=== PATIENT | female | born 1990 ===

== ENCOUNTER 2021-08-18 14:34 | Inpatient (IN) | payer BC ==
[2021-08-18] MEDS ORDERED: Tranexamic Acid 1,000 MG in Sodium Chloride 0.9% 100 ML IV PRN (17:35)
[2021-08-18] MEDS ORDERED: Lidocaine 1% 50 ML MDV INJECT PRN (17:35)
[2021-08-18] MEDS ORDERED: Methylergonovine 0.2 MG/1 ML Amp IM PRN (17:35)
[2021-08-18] MEDS ORDERED: Sodium Chloride 0.9% 20 ML SDV IV PRN (17:35)
[2021-08-18] MEDS ORDERED: Sodium Chloride 0.9% 2.5 ML Syringe FLUSH PRN (17:35)
[2021-08-18] MEDS ORDERED: Carboprost Tromethamine 250 MCG/1 ML Amp IM PRN (17:35)
[2021-08-18] MEDS ORDERED: Sodium Chloride 0.9% 10 ML Syringe FLUSH PRN (17:35)
[2021-08-18] MEDS ORDERED: Butorphanol 1 MG/ML SDV IVPUSH PRN (17:35)
[2021-08-18] MEDS ORDERED: Misoprostol 200 MCG Tab PO PRN (17:35)
[2021-08-18] MEDS ORDERED: Water For Irrigation,Sterile 1,000 ML Container IRR PRN (17:35)
[2021-08-18] MEDS ORDERED: Nalbuphine 10 MG/1 ML Vial IVPUSH PRN (17:35)
[2021-08-18] MEDS ORDERED: Oxytocin/0.9 % Sodium Chloride 30 UNIT/500 ML BAG IV SCH ×2 (17:45→20:45)
[2021-08-18] MEDS: Lactated Ringers 1,000 ML IV SCH ×2 (18:12→19:51)
[2021-08-18] MEDS ORDERED: Ropivacaine HCl/PF 200 ML ONE (18:21)
[2021-08-18] MEDS ORDERED: Lidocaine 2% 5 ML SDV ONE (18:33)
[2021-08-18] MEDS ORDERED: fentaNYL 100 MCG/2 ML SDV ONE (18:33)
--- NOTE | 2021-08-18 18:45 | PCM.PREANE ---
Preanesthetic Assessment - Anesthesia/Transfusion/Family Hx Anesthesia History: No Prior Anesthesia - Review of Systems General: No Symptoms Pulmonary: No Symptoms Cardiovascular: No Symptoms Gastrointestinal: No Symptoms Neurological: No Symptoms Other: Reports: None - Physical Assessment NPO Status Date: 08/18/21 NPO Status Time: 12:00 Height: 5 ft 3 in Weight: 190 lb ASA Class: 2 Mental Status: Alert & Oriented x3 Airway Class: Mallampati = 2 Dentition: Reports: Normal Dentition Thyro-Mental Finger Breadths: 3 Mouth Opening Finger Breadths: 3 ROM/Head Extension: Full Lungs: Clear to Auscultation, Normal Respiratory Effort Cardiovascular: Regular Rate, Regular Rhythm - Lab Values: Laboratory Last Values WBC 14.39 K/uL (4.0-11.0) H 08/18/21 17:20 RBC 4.26 M/uL (4.30-5.90) L 08/18/21 17:20 Hgb 11.7 g/dL (12.0-16.0) L 08/18/21 17:20 Hct 35.9 % (36.0-46.0) L 08/18/21 17:20 MCV 84.3 fL (80.0-98.0) 08/18/21 17:20 MCH 27.5 pg (27.0-32.0) 08/18/21 17:20 MCHC 32.6 g/dL (31.0-37.0) 08/18/21 17:20 RDW Std Deviation 42.3 fl (28.0-62.0) 08/18/21 17:20 RDW Coeff of Romy 14 % (11.0-15.0) 08/18/21 17:20 Plt Count 347 K/uL (150-400) 08/18/21 17:20 MPV 10.40 fL (7.40-12.00) 08/18/21 17:20 Nucleated RBC % 0.0 /100WBC 08/18/21 17:20 Nucleated RBCs # 0 K/uL 08/18/21 17:20 Blood Type O POSITIVE 08/18/21 17:20 Antibody Screen NEGATIVE 08/18/21 17:20 - Allergies Allergies/Adverse Reactions: Allergies Allergy/AdvReac Type Severity Reaction Status Date / Time amoxicillin Allergy Rash Verified 08/18/21 04:59 - Acknowledgements Anesthesia Type Planned: Epidural Pt an Appropriate Candidate for the Planned Anesthesia: Yes Alternatives and Risks of Anesthesia Discussed w Pt/Guardian: Yes Pt/Guardian Understands and Agrees with Anesthesia Plan: Yes PreAnesthesia Questionnaire - HOME MEDS Home Medications: Home Meds Levothyroxine Sodium [Levothyroxine] 125 mcg PO DAILY 08/18/21 [History] Vit #76/Iron,Carb/Fa [Pnv 29-1 Tablet] 1 each PO DAILY 08/18/21 [His tory] - CURRENT (IN HOUSE) MEDS Current Meds: Current Medications Butorphanol Tartrate (Butorphanol 1 Mg/Ml Sdv) 1 mg IVPUSH Q1H PRN PRN Reason: Pain (severe 7-10) Carboprost Tromethamine (Carboprost Tromethamine 250 Mcg/1 Ml Amp) 250 mcg IM ASDIRECTED PRN PRN Reason: Post Hemorrhage Oxytocin/Sodium Chloride (Oxytocin 30 Unit In Ns 0.9% 500 Ml Premix) 30 unit in 500 mls @ 500 mls/hr IV TITRATE JIL Tranexamic Acid 1,000 mg/ (Sodium Chloride) 110 mls @ 660 mls/hr IV ONETIME PRN PRN Reason: Bleeding Lactated Ringer's (Ringers, Lactated) 1,000 mls @ 150 mls/hr IV ASDIRECTED JIL Lidocaine HCl (Lidocaine 1% 50 Ml Mdv) 50 ml INJECT ONETIME PRN PRN Reason: Laceration repair Methylergonovine Maleate (Methylergonovine 0.2 Mg/1 Ml Amp) 0.2 mg IM ASDIRECTED PRN PRN Reason: Post Hemorrhage Misoprostol (Misoprostol 200 Mcg Tab) 200 mcg PO ONETIME PRN PRN Reason: Post Hemorrhage Nalbuphine HCl (Nalbuphine 10 Mg/1 Ml Vial) 10 mg IVPUSH Q1H PRN PRN Reason: Pain (severe 7-10) Sodium Chloride (Sodium Chloride 0.9% 10 Ml Syringe) 10 ml FLUSH ASDIRECTED PRN PRN Reason: Keep Vein Open Sodium Chloride (Sodium Chloride 0.9% 2.5 Ml Syringe) 2.5 ml FLUSH ASDIRECTED PRN PRN Reason: Keep Vein Open Sodium Chloride (Sodium Chloride 0.9% 20 Ml Sdv) 10 ml IV ASDIRECTED PRN PRN Reason: IV Use Sterile Water (Water For Irrigation,Sterile 1,000 Ml Container) 1,000 ml IRR ASDIRECTED PRN PRN Reason: delivery Discontinued Medications Fentanyl (Fentanyl 100 Mcg/2 Ml Sdv) Confirm Administered Dose 100 mcg .ROUTE .STK-MED ONE Stop: 08/18/21 18:34 Ropivacaine (Naropin 0.2%) Confirm Administered Dose 200 mls @ as directed .ROUTE .STK-MED ONE Stop: 08/18/21 18:22 Lidocaine (Lidocaine 2% 5 Ml Sdv) Confirm Administered Dose 5 ml .ROUTE .STK-MED ONE Stop: 08/18/21 18:34
--- NOTE | 2021-08-18 18:46 | PCM.POSTAN ---
POST ANESTHESIA ASSESSMENT - MENTAL STATUS Mental Status: Alert, Oriented - RESPIRATORY Respiratory Status: Respiratory Rate WNL, Airway Patent, O2 Saturation Stable - CARDIOVASCULAR CV Status: Pulse Rate WNL, Blood Pressure Stable - GASTROINTESTINAL GI Status: No Symptoms - POST OP HYDRATION Hydration Status: Adequate & Stable
[2021-08-18] MEDS ORDERED: ePHEDrine 50 MG/ML SDV IVPUSH PRN ×2 (18:48)
--- NOTE | 2021-08-18 18:48 | PCM.SN.2 ---
- Pre-Procedure Checklist Attending Provider Aware: Yes Chart Reviewed: Yes Consent Signed: Yes Labs Reviewed: Yes VS/FHR Reviewed: Yes Patient Identification Confirmation Method: Reports: Chart Visual, ID Band Visual, Verbal Patient Pt an Appropriate Candidate for the Planned Anesthesia: Yes Alternatives and Risks of Anesthesia Discussed w Pt/Guardian: Yes - Procedure Procedure Start Date: 08/18/21 Procedure Start Time: 18:[address]: Reports: Blood Pressure, Heart Rate, SPO2 Functional IV: Yes Safety Measures: Reports: Patient Identified, Procedure Verified, Site Verified, Procedure Time Out Patient Position: Reports: Sitting Prep: Reports: Alcohol x3, Betadine x3 Local Anesthetic: Reports: Intradermal Wheal w Lidocaine 1% Regional Placement Level: Reports: L2-3 Needle: Reports: 17 g Touhy Approach: Reports: Midline Technique: Reports: PAM Glass Syringe Parasthesia: Reports: None Fluid Obtained: Reports: None Test Dose Medication: Reports: Lidocaine 1.5% w Epinephrine 1:200,000 Test Dose Response: Reports: Negative Loading Dose Time: 18:35 Loading Dose Medication: 100mcg fentanyl and 5cc 2% lido Loading Dose Patient Position: RLD Continuous Infusion Start Time: 18:25 Continuous Infusion Medication: 0.2% Naropin Continuous Infusion Rate: 16 Continuous Infusion PCS Bolus Option: 4 Continuous Infusion Lockout Dose (cc/hr): 28 Patient Position Post Placement: Reports: Supline/KENN VS and FHR Monitored in Unit Post Placement: Yes Procedure End Date: 08/18/21 Procedure End Time: 19:15
[2021-08-18] MEDS ORDERED: Ropivacaine/PF 400 MG/200 ML PCA EPIDUR SCH (19:00)
[2021-08-18] MEDS ORDERED: Ondansetron 4 MG/2 ML SDV ONE (19:10)
[2021-08-18] MEDS ORDERED: Ondansetron 4 MG/2 ML SDV IVPUSH PRN (19:15)
[2021-08-18] MEDS ORDERED: Citric Acid/Sodium Citrate Solution 30 ML Cup ONE (20:00)
[2021-08-18] MEDS ORDERED: Citric Acid/Sodium Citrate Solution 30 ML Cup PO ONE (20:10)
[2021-08-19] MEDS: Lactated Ringers 1,000 ML IV SCH (02:36)
[2021-08-19] MEDS ORDERED: Bisacodyl 10 MG Supp RECTAL PRN (06:53)
[2021-08-19] MEDS ORDERED: Witch Hazel Medicated Pads 40/Jar TOP PRN (06:53)
[2021-08-19] MEDS ORDERED: Ibuprofen 400 MG Tab PO PRN (06:53)
[2021-08-19] MEDS ORDERED: Acetaminophen 500 MG Tab PO PRN (06:53)
[2021-08-19] MEDS ORDERED: Lanolin 100% Cream 7 GM Tube TOP PRN (06:53)
[2021-08-19] MEDS ORDERED: oxyCODONE 5 MG Tab PO PRN (06:53)
[2021-08-19] MEDS ORDERED: Benzocaine/Menthol 20%-0.5% Spray 78 GM Cannister TOP PRN (06:53)
--- NOTE | 2021-08-19 06:53 | PCM.OPNOTE ---
- General Post-Op/Procedure Note Date of Surgery/Procedure: 08/19/21 Operative Procedure(s): /2nd MLL repaired Findings: Viable male APGARs 8 and 9, weight pending. Spontaneous delivery intact placenta with 3V cord. Pre Op Diagnosis: 39/1 week IUP. Active labor Post-Op Diagnosis: Same Anesthesia Technique: Epidural Primary Surgeon: Rehana Cerda EBL in mLs: 300 Complications: none known Condition: Good Free Text/Narrative:: Dictation [id number]
--- NOTE | 2021-08-19 07:05 | PCM48HPAN ---
Post Anesthesia Note - EVALUATION WITHIN 48HRS OF ANESTHETIC Vital Signs in Normal Range: Yes Patient Participated in Evaluation: Yes Respiratory Function Stable: Yes Airway Patent: Yes Cardiovascular Function Stable: Yes Hydration Status Stable: Yes Pain Control Satisfactory: Yes Nausea and Vomiting Control Satisfactory: Yes Mental Status Recovered: Yes
--- NOTE | 2021-08-19 07:14 | OR ---
SURGEON: Rehana Cerda M.D. DATE OF PROCEDURE: 08/19/2021 PREOPERATIVE DIAGNOSES: 1. 39 and 1 week intrauterine . 2. Active labor. POSTOPERATIVE DIAGNOSES: 1. 39 and 1 week intrauterine . 2. Active labor. PROCEDURES: Spontaneous vaginal delivery, second-degree midline laceration repair. ANESTHESIA: Epidural. ESTIMATED BLOOD LOSS: 300 mL. COMPLICATIONS: None known. FINDINGS: Viable male, score 8 at one minute and 9 at five minutes. Weight is pending. Spontaneous delivery, intact placenta, 3-vessel cord. DISPOSITION: Infant to nursery, mom in LDRP. PROCEDURE IN DETAIL: Rowena is a 30-year-old, G1, P0, at 39 weeks' gestation, who presented on the evening of 08/18/2021 with regular contractions throughout the day. With observation, she changed her cervix from 3 cm to 4 cm, was admitted, routine labs drawn, IV hydration was initiated. She is COVID negative. Category 1 heart tones are noted. The patient was increasingly uncomfortable, underwent regional anesthesia from epidural, became more comfortable, and at that time, was found to be 5 to 6 cm. Progressing nicely. Shortly before 10 p.m., amniotomy was performed, clear fluid was returned. The patient at that time was found to be 7 cm. She continued to progress throughout the night, early childhood hours. She began pushing efforts shortly after 4 a.m., pushed readily for an hour approximately 50 minutes, began pushing again, and pushed readily to a +3 station. I was called for delivery. Upon my arrival, the patient was placed in modified dorsal lithotomy position, she was prepped and draped in usual aseptic manner. Continued with pushing efforts, was able to push to a +4 station, followed by delivery of the infant's head atraumatically spontaneously, followed by anterior shoulder, posterior shoulder, and remainder of the body. 's oropharynx and nares were bulb suctioned. Body cord was reduced manually. Infant was handed off to his mother with attending nursery staff at her side. There was some meconium-stained fluid noted at that point. It has not been seen prior to this during the labor process. Cord arterial, cord venous, cord blood sampling was obtained. Light pressure was applied while the placenta was delivered spontaneously intact. Vigorous fundal uterine massage was then applied while 30 units of Pitocin was delivered in 500 mL of IV fluid. Upon inspection of cervix, vaginal sidewalls, and perineum, there was found to be a second-degree midline vaginal laceration present. This was repaired using 3-0 Vicryl in usual fashion. Hemostasis appeared evident. Sponge, instrument, and needle count was correct. The patient remained in LDRP, to nursery. Hemostasis evident. Uterus was firm. MICHAEL / PERLITA /[id number]
[2021-08-19] MEDS: Ibuprofen 800 MG Tab PO PRN ×3 (07:54→21:21)
[2021-08-19] MEDS: Acetaminophen 500 MG Tab PO PRN ×3 (07:55→20:18)
[2021-08-19] MEDS ORDERED: Calcium Carbonate 500 MG Tab.Chew PO PRN (19:57)
[2021-08-19] MEDS ORDERED: Famotidine 20 MG Tab PO SCH (20:00)
[2021-08-19] MEDS: Docusate Sodium 100 MG Cap PO PRN (20:19)
[2021-08-20] MEDS ORDERED: Levothyroxine 125 MCG Tab PO SCH (07:30)
--- NOTE | 2021-08-20 07:30 | PCM.PNPP ---
- General Info Date of Service: 08/20/21 Subjective Update: Patient complains of neck pain from pushing and pain with . Minimal bleeding. Functional Status: Reports: Pain Controlled, Tolerating Diet, Ambulating, Urinating - Review of Systems General: Reports: No Symptoms HEENT: Reports: No Symptoms Pulmonary: Reports: No Symptoms Cardiovascular: Reports: No Symptoms Gastrointestinal: Reports: No Symptoms Genitourinary: Reports: No Symptoms Musculoskeletal: Reports: No Symptoms Skin: Reports: No Symptoms Neurological: Reports: No Symptoms Psychiatric: Reports: No Symptoms - Patient Data Vital Signs - Most Recent: Last Vital Signs Temp 36.1 C 08/20/21 04:00 Pulse 80 08/20/21 04:00 Resp 18 08/20/21 04:00 BP 135/91 H 08/20/21 04:00 Pulse Ox 98 08/20/21 04:00 Weight - Most Recent: 86.183 kg Lab Results - Last 24 Hours: Laboratory Results - last 24 hr 08/20/21 Range/Units 06:35 Hgb 9.4 L (12.0-16.0) g/dL Hct 29.3 L (36.0-46.0) % Med Orders - Current: Current Medications Acetaminophen (Acetaminophen 500 Mg Tab) 500 mg PO Q4H PRN PRN Reason: Pain (mild 1-3) Acetaminophen (Acetaminophen 500 Mg Tab) 1,000 mg PO Q4H PRN PRN Reason: Pain (mild 1-3) Last Admin: 08/19/21 20:18 Dose: 1,000 mg Documented by: Benzocaine/Menthol (Benzocaine/Menthol 20%-0.5% [place] 78 Gm Cannister) 78 gm TOP ASDIRECTED PRN PRN Reason: Perineal Comfort Measure Last Admin: 08/19/21 07:56 Dose: 1 canister Documented by: Bisacodyl (Bisacodyl 10 Mg Supp) 10 mg RECTAL ONETIME PRN PRN Reason: Constipation Calcium Carbonate/Glycine (Calcium Carbonate 500 Mg Tab.Chew) 1,000 mg PO Q2HR PRN PRN Reason: Indigestion Last Admin: 08/19/21 20:19 Dose: 1,000 mg Documented by: Carboprost Tromethamine (Carboprost Tromethamine 250 Mcg/1 Ml Amp) 250 mcg IM ASDIRECTED PRN PRN Reason: Post Hemorrhage Docusate Sodium (Docusate Sodium 100 Mg Cap) 100 mg PO Q12H PRN PRN Reason: Constipation Last Admin: 08/19/21 20:19 Dose: 100 mg Documented by: Emollient Ointment (Lanolin 100% Cream 7 Gm Tube) 0 gm TOP ASDIRECTED PRN PRN Reason: Sore Nipples Last Admin: 08/19/21 07:57 Dose: 1 tube Documented by: Ephedrine Sulfate (Ephedrine 50 Mg/Ml Sdv) 10 mg IVPUSH Q5M PRN PRN Reason: Hypotension Ephedrine Sulfate (Ephedrine 50 Mg/Ml Sdv) 10 mg IVPUSH Q1M PRN PRN Reason: Hypotension Famotidine (Famotidine 20 Mg Tab) 20 mg PO QPM@2000 [facility] Last Admin: 08/19/21 20:19 Dose: 20 mg Documented by: Oxytocin/Sodium Chloride (Oxytocin 30 Unit In Ns 0.9% 500 Ml Premix) 30 unit in 500 mls @ 500 mls/hr IV TITRATE [facility] Last Admin: 08/19/21 06:25 Dose: 500 mls/hr Documented by: Tranexamic Acid 1,000 mg/ (Sodium Chloride) 110 mls @ 660 mls/hr IV ONETIME PRN PRN Reason: Bleeding Lactated Ringer's (Ringers, Lactated) 1,000 mls @ 150 mls/hr IV ASDIRECTED [facility] Last Admin: 08/19/21 02:36 Dose: 150 mls/hr Documented by: Oxytocin/Sodium Chloride (Oxytocin 30 Unit In Ns 0.9% 500 Ml Premix) 30 unit in 500 mls @ 2 mls/hr IV TITRATE [facility]; Protocol Ibuprofen (Ibuprofen 400 Mg Tab) 400 mg PO Q4H PRN PRN Reason: Pain (mild 1-3) Ibuprofen (Ibuprofen 800 Mg Tab) 800 mg PO Q6H PRN PRN Reason: Cramping Last Admin: 08/19/21 21:21 Dose: 800 mg Documented by: Levothyroxine Sodium (Levothyroxine 125 Mcg Tab) 125 mcg PO ACBREAKFAST [facility] Lidocaine HCl (Lidocaine 1% 50 Ml Mdv) 50 ml INJECT ONETIME PRN PRN Reason: Laceration repair Methylergonovine Maleate (Methylergonovine 0.2 Mg/1 Ml Amp) 0.2 mg IM ASDIRECTED PRN PRN Reason: Post Hemorrhage Miscellaneous Medication (Phenylephrine Hcl In 0.9% Nacl 1 Mg/10 Ml Syringe) 0.1 mg IVPUSH Q1M PRN PRN Reason: Hypotension Nalbuphine HCl (Nalbuphine 10 Mg/1 Ml Vial) 10 mg IVPUSH Q1H PRN PRN Reason: Pain (severe 7-10) Ondansetron HCl (Ondansetron 4 Mg/2 Ml Sdv) 4 mg IVPUSH Q4H PRN PRN Reason: Nausea Oxycodone HCl (Oxycodone 5 Mg Tab) 5 mg PO Q2H PRN PRN Reason: Pain (severe 7-10) Ropivacaine (Ropivacaine/Pf 400 Mg/200 Ml Rustic Fence Builder) 400 mg EPIDUR ASDIRECTED JIL Sodium Chloride (Sodium Chloride 0.9% 10 Ml Syringe) 10 ml FLUSH ASDIRECTED PRN PRN Reason: Keep Vein Open Sodium Chloride (Sodium Chloride 0.9% 2.5 Ml Syringe) 2.5 ml FLUSH ASDIRECTED PRN PRN Reason: Keep Vein Open Sodium Chloride (Sodium Chloride 0.9% 20 Ml Sdv) 10 ml IV ASDIRECTED PRN PRN Reason: IV Use Sterile Water (Water For Irrigation,Sterile 1,000 Ml Container) 1,000 ml IRR ASDIRECTED PRN PRN Reason: delivery Witch Adeola (Witch Adeola Medicated Pads 40/Jar) 1 pad TOP ASDIRECTED PRN PRN Reason: comfort care Last Admin: 08/19/21 07:57 Dose: 1 tub Documented by: Discontinued Medications Butorphanol Tartrate (Butorphanol 1 Mg/Ml Sdv) 1 mg IVPUSH Q1H PRN PRN Reason: Pain (severe 7-10) Citric Acid/Sodium Citrate (Citric Acid/Sodium Citrate Solution 30 Ml Cup) 30 ml PO ONETIME ONE Stop: 08/18/21 20:11 Last Admin: 08/18/21 20:02 Dose: 30 ml Documented by: Citric Acid/Sodium Citrate (Citric Acid/Sodium Citrate Solution 30 Ml Cup) Confirm Administered Dose 30 ml .ROUTE .STK-MED ONE Stop: 08/18/21 20:01 Last Admin: 08/19/21 20:56 Dose: Not Given Documented by: Fentanyl (Fentanyl 100 Mcg/2 Ml Sdv) Confirm Administered Dose 100 mcg .ROUTE .STK-MED ONE Stop: 08/18/21 18:34 Last Admin: 08/19/21 19:52 Dose: Not Given Documented by: Ropivacaine (Naropin 0.2%) Confirm Administered Dose 200 mls @ as directed .ROUTE .STK-MED ONE Stop: 08/18/21 18:22 Last Admin: 08/19/21 19:51 Dose: Not Given Documented by: Lidocaine (Lidocaine 2% 5 Ml Sdv) Confirm Administered Dose 5 ml .ROUTE .STK-MED ONE Stop: 08/18/21 18:34 Last Admin: 08/19/21 19:52 Dose: Not Given Documented by: Misoprostol (Misoprostol 200 Mcg Tab) 200 mcg PO ONETIME PRN PRN Reason: Post Hemorrhage Ondansetron HCl (Ondansetron 4 Mg/2 Ml Sdv) Confirm Administered Dose 4 mg .ROUTE .STK-MED ONE Stop: 08/18/21 19:11 Last Admin: 08/18/21 19:16 Dose: 4 mg Documented by: - Infant Interaction Disposition, : in Room with Family Infant Interaction: Holding Feeding: Breastfed ; Nursed Well Support Person: - Recovery Exam Fundal Tone: Firm Fundal Level: 1 Fingerbreadths Below Umbilicus Fundal Placement: Midline Lochia Amount: Small Bladder Status: Voiding Urinary Elimination: Voided - Exam General: Alert, Oriented Neck: Supple Lungs: Normal Respiratory Effort GI/Abdominal Exam: Soft, Non-Tender, No Distention Extremities: Non-Tender, No Pedal Edema Skin: Warm, Dry, Intact Neurological: No New Focal Deficit Psy/Mental Status: Alert, Normal Affect, Normal Mood - Problem List & Annotations (1) Vaginal delivery SNOMED Code(s): 643665264 Code(s): O80 - ENCOUNTER FOR FULL-TERM UNCOMPLICATED DELIVERY Status: Acute Current Visit: Yes - Problem List Review Problem List Initiated/Reviewed/Updated: Yes - My Orders Last 24 Hours: My Active Orders 08/19/21 19:57 Calcium Carbonate [Tums] 1,000 mg PO Q2HR PRN 08/19/21 20:00 Famotidine [Pepcid] 20 mg PO QPM@2000 08/20/21 07:25 Ready for Discharge [RC] PER UNIT ROUTINE 08/20/21 07:30 Levothyroxine 125 mcg PO ACBREAKFAST - Assessment Assessment:: 30yo P1 s/p , PPD#1 - Plan Plan:: Work with nurses today on latch due to pain with feeding. Plan discharge home today if baby cleared by Supervisor Paint. Reviewed discharge instructions/precautions, all questions answered.
[2021-08-20] MEDS: Ibuprofen 800 MG Tab PO PRN (07:32)
[2021-08-20] MEDS: Acetaminophen 500 MG Tab PO PRN (07:33)
[2021-08-20] MEDS: Docusate Sodium 100 MG Cap PO PRN (07:40)
== END 2021-08-20 13:25 | disposition home or self-care (01) | DRG 560 ==
LOC: MW.OBCHECK 14:34 → MW.OB 17:36 → OBSVTOIN 08-19 06:23 → MW.OB 08-19 10:13
PROVIDERS: ADMIT Obstetrics & Gynecology; ATTEND Obstetrics & Gynecology
PROC: 3E0R3BZ Introduction of Anesthetic Agent into Spinal Canal, Percutaneous Approach (ICD-10-PCS; 2021-08-18)
PROC: 00HU33Z Insertion of Infusion Device into Spinal Canal, Percutaneous Approach (ICD-10-PCS; 2021-08-18)
PROC: 10E0XZZ Delivery of Products of Conception, External Approach (ICD-10-PCS; principal; 2021-08-19)
PROC: 0KQM0ZZ Repair Perineum Muscle, Open Approach (ICD-10-PCS; 2021-08-19)
DX: O99.344 Other mental disorders complicating childbirth (principal); Z3A.39 39 weeks gestation of pregnancy; Z37.0 Single live birth; O70.1 Second degree perineal laceration during delivery; Z20.822 Contact with and (suspected) exposure to COVID-19
CPT/HCPCS: 36415; 59025; 59409; 82803; 85014; 85018; 85027; 86592; 86850; 86900; 86901; A9270-GY; J2405; J2590; J2795; J3010; J7120; U0002